=== PATIENT | female | born 1980 | race African-American/Black ===

== ENCOUNTER 2017-07-30 08:56 | Emergency (ER) | payer MEDICAID, OTHER ==
[~2017-07-30] VITALS: Ht 162.6 cm; Wt 74.8 kg
[2017-07-30] MEDS ORDERED: AMLODIPINE BESY10 MG ORAL (09:03)
[2017-07-30 09:11] VITALS: BP 178/105
[2017-07-30] MEDS ORDERED: NORVASC10 MG ORAL (09:13)
[2017-07-30] MEDS ORDERED: IBUPROFEN600 MG ORAL (09:13)
[2017-07-30 09:22] VITALS: BP 181/108
--- NOTE | 2017-07-30 09:23 | Emergency Room Report ---
History of Present Illness General Chief Complaint: Sore Throat Source: Patient Present Illness HPI 37-year-old female walks in with chief complaint of sore throat and pain when swallowing since this morning. Patient has history of seasonal allergies. Denies rhinorrhea, sinus congestion. Denies fever chills. Associated with some dry cough. Has not taken any aekt-qiq-cdybhst medication at home. History of high blood pressure, unable to get refill for Norvasc 10 mg for over a month. Has PMD follow-up this week. Denies chest pain, headache, dizziness. Allergies: Coded Allergies: No Known Allergies (Unverified , 07/30/17) Patient History Past Medical History: HTN Past Surgical History: none Pertinent Family History: none Social History: Denies: smoking, alcohol use, drug use Last Menstrual Period: 07/08/17 Now: No Immunizations: UTD Reviewed Nursing Documentation: PMH: Agreed; PSxH: Agreed Nursing Documentation-PMH Past Medical History: No History, Except For Hx Hypertension: Yes Review of Systems All Other Systems: negative except mentioned in HPI Physical Exam Vital Signs Date Time Temp Pulse Resp B/P (MAP) Pulse Ox O2 Delivery O2 Flow Rate FiO2 07/30/17 08:58 98.2 85 18 190/120 95 Room Air 98.2 Sp02 EP Interpretation: reviewed, normal General Appearance: normal inspection, well appearing, no apparent distress, alert, GCS 15, non-toxic Head: normocephalic, atraumatic Eyes: bilateral eye PERRL, bilateral eye EOMI ENT: normal ENT inspection, hearing grossly normal, normal pharynx, no angioedema, normal voice, TMs + canals normal, uvula midline, moist mucus membranes Neck: normal inspection, full range of motion, supple, thyroid normal, no meningismus, no bony tend Respiratory: normal inspection, lungs clear, normal breath sounds, no rhonchi, no respiratory distress, no retraction, no accessory muscle use, no wheezing, speaking full sentences Cardiovascular #1: regular rate, rhythm, no edema, no JVD, normal capillary refill Gastrointestinal: normal inspection, normal bowel sounds, non tender, soft, no mass, no peritonitis, non-distended, no guarding, no hernia, no pulsatile mass Genitourinary: no CVA tenderness Musculoskeletal: normal inspection, back normal, normal range of motion, no calf tenderness, pelvis stable, Leticia's Sign negative Neurologic: normal inspection, alert, oriented x3, responsive, african studies professor III-XII nml as tested, motor strength/tone normal, cerebellar normal, normal gait, speech normal Psychiatric: normal inspection, judgement/insight normal, mood/affect normal, no suicidal/homicidal ideation, no delusions Skin: normal inspection, normal color, no rash Lymphatic: normal inspection, no adenopathy Medical Decision Making Diagnostic Impression: Primary Impression: HTN (hypertension) Qualified Codes: I10 - Essential (primary) hypertension Additional Impression: Sore throat ER Course Vital signs notable for elevated blood pressure. No signs of hypertension emergency, no chest pain, headache or dizziness. Was given dose of Norvasc 10 mg here. Sore throat: No sign of bacterial infection or strep or ENVIRONMENTAL CHANGE ANALYST. Given associated cough likely viral or associated with seasonal allergies. Was given Motrin for symptomatic relief and Rx for same. ER course: Patient has remained stable during ED stay. Disposition: Patient is to be discharged to home. Prescriptions given are motrin, norvasc Patient is instructed to follow up with their primary care doctor within 5 days. Strict return precautions discussed with patient such as fever, chills, worsening/severe pain, nausea, vomiting, which may indicate severe illness. Patient verbalizes understanding and agrees with plan. Please note that this Emergency Department Report was dictated using [employer] technology software, occasionally this can lead to erroneous entry secondary to interpretation by the dictation equipment Last Vital Signs Date Time Temp Pulse Resp B/P (MAP) Pulse Ox O2 Delivery O2 Flow Rate FiO2 07/30/17 09:17 86 190/120 07/30/17 09:17 98.2 07/30/17 08:58 18 95 Room Air Status: improved Disposition: HOME, SELF-CARE Condition: Improved Scripts Amlodipine Besylate (Norvasc) 10 Mg Tablet 10 MG ORAL DAILY for 30 Days, #30 TAB Prov: EM CLOUD M.D. 07/30/17 Ibuprofen* (MOTRIN*) 600 Mg Tablet 600 MG ORAL THREE TIMES A DAY for sore throat, #30 TAB 0 Refills Prov: EM CLOUD M.D. 07/30/17 Patient Instructions: Laryngitis EM CLOUD M.D. Jul 30, 2017 09:23
== END 2017-07-30 09:22 | disposition home or self-care (01) ==
LOC: EMR 09:11
DX: R07.0 Pain in throat (principal); I10 Essential (primary) hypertension
CPT/HCPCS: 99284